=== PATIENT | male | born 1955 | race Caucasian/White ===

== ENCOUNTER → 2023-03-30 13:18 | Outpatient (BNVA) | payer OTHER, SELFPAY | PROVIDERS: PCP Physician Assistant; Visit Provider Anesthesiology | DX: G89.4 Chronic pain syndrome (principal); G58.9 Mononeuropathy, unspecified; M51.36 Other intervertebral disc degeneration, lumbar region; M47.816 Spondylosis without myelopathy or radiculopathy, lumbar region | CPT/HCPCS: 99202 ==

== ENCOUNTER 2023-08-02 05:59 | Outpatient (REF) | payer OTHER, SELFPAY ==
--- NOTE | ~2023-08-02 | FL_ITS ---
EXAMINATION: XR FLUOROSCOPY WITH IMAGES CLINICAL INFORMATION: Mononeuropathy COMPARISON: None available. TECHNIQUE: Fluoroscopy Supervised By: Dr. Inocencio Simon. Fluoroscopy Time: 0.2 minutes. Cumulative Dose: 3.02 mGy. DAP: 0.0525 Gycm2. Images: 1. FINDINGS: There is a small amount of contrast overlying the iliac crest. Per note, the exam was not completed due to patient movement. FL/FL guidance in treatment room IMPRESSION: Fluoroscopic guidance for pain management.
== END 2023-08-02 06:00 | disposition home or self-care (01) ==
LOC: CF 05:59
PROVIDERS: Visit Provider Anesthesiology
DX: M51.36 Other intervertebral disc degeneration, lumbar region (principal); G89.4 Chronic pain syndrome; M47.816 Spondylosis without myelopathy or radiculopathy, lumbar region
CPT/HCPCS: 64450; 77002; J2795; Q9967

== ENCOUNTER 2023-08-02 07:12 | Outpatient (AMB) | payer OTHER, SELFPAY ==
[2023-08-02 07:17] VITALS: BP 130/82; PULSE 57; RESP 18; O2SAT 97; BMI 32.4
--- NOTE | 2023-08-02 07:17 | MHC.OFFVIS ---
Intake Vital Signs 08/02/23 07:17 Height 6 ft Weight 239 lb BMI 32.4 BP 130/82 Blood Pressure Location Lt brachial Position Sitting Respiration 18 Pulse 57 Pulse Source Pulse Oximeter Pulse Oximetry (%) 97 Oxygen Delivery Method Room Air Comment Pre-Op Intake Visit Reasons: L DX CLUNEAL NB/LOCAL Allergies No Known Allergies Allergy (Verified 08/02/23 07:19) Physical Exam Vital Signs: Last Vital Signs Pulse 57 08/02/23 07:17 Resp 18 08/02/23 07:17 BP 130/82 08/02/23 07:17 Pulse Ox 97 08/02/23 07:17 Oxygen Delivery Method Room Air 08/02/23 07:17 BMI result Body Mass Index 32.4 Assessment & Plan Assessment & Plan (1) Mononeuropathy, unspecified: Code(s): G58.9 - Mononeuropathy, unspecified Plan: Diagnostic left cluneal nerve block attempt. Informed consent was explained thoroughly to the patient.? All questions about benefits and risks for the procedure were answered. Patient came to the operating room and was positioned prone on the operating table with the pillow under the pelvis.? ? The lower back and buttocks of the patient were prepped with ChloraPrep prepped and draped with sterile utility towels.? Sterilely draped C-arm was brought over the operating field and sq picture of patient's pelvis was demonstrated on the screen.? Left iliac crest was demonstrated on the screen. In the projection of left iliac crest starting from the top of the iliac crest and finishing at the projection of the most lateral portion of sacral alae to the skin injection of the local anesthetic was performed in linear fashion. After that several attempts were made to drive 22 gauge 3-1/2 inch needle to the bony portion of the left iliac crest. I managed to accomplish only 1 needle advancement. Patient was very restless on the operating table continue to move which prevented me to focus C-arm properly on the targets and constantly change the direction of the x-ray beam. I asked the patient if he wants to reschedule this procedure under sedation so he could stay more stable on the operating field. The patient agreed. Procedure was terminated. The patient will be rescheduled for left cluneal nerve block under propofol sedation. (2) Disc degeneration, lumbar: Code(s): M51.36 - Other intervertebral disc degeneration, lumbar region (3) Chronic pain syndrome: Code(s): G89.4 - Chronic pain syndrome (4) Spondylosis of lumbar joint: Code(s): M47.816 - Spondylosis without myelopathy or radiculopathy, lumbar region Plan With no tenderness on palpation in the projection of the lumbar spine and severe tenderness on palpation in projection of the left iliac crest my 1st thought about this patient's pain is cluneal nerve neuropathy. I offered him and he agreed to go for left-sided cluneal nerve injection. I will do this injection as a diagnostic injection to figure out the source of his pain. If this will be positive test I will offer him radiofrequency ablation versus stimulation of the cluneal nerves. I also would need to evaluate MRI which was recently done and demonstrated some ?bulging disc ?. It is not clear whether not the bulging disc her part of his syndrome however he reports left lower extremity giving in under him and that might be related to some nerve root compressions. Spondylosis of lumbar spine also can be suspected and treated with diagnostic medial branch block on the left side. I will see this patient after cluneal nerve injection. Hopefully by then we will obtain the MRI. Orders: Orders FL guidance in treatment room 08/02/23 G58.9 - Mononeuropathy, unspecified Coding Level of Care Code Procedure Only Diagnoses Mononeuropathy, unspecified G58.9 Disc degeneration, lumbar M51.36 Chronic pain syndrome G89.4 Spondylosis of lumbar joint M47.816
== END 2023-08-02 08:03 | disposition left against medical advice (07) ==
LOC: HO.PMCPRC 07:12
PROVIDERS: PCP Physician Assistant; Visit Provider Anesthesiology
DX: G89.4 Chronic pain syndrome (principal); M47.816 Spondylosis without myelopathy or radiculopathy, lumbar region
CPT/HCPCS: 64450; 77002

== ENCOUNTER 2023-08-26 08:05 | Day surgery (SDC) | payer OTHER, SELFPAY ==
[2023-08-24 13:41] VITALS: BMI 32.4
--- NOTE | ~2023-08-26 | FL_ITS ---
EXAMINATION: XR FLUOROSCOPY WITH IMAGES CLINICAL INFORMATION: Cluneal nerve block, left. COMPARISON: None available. TECHNIQUE: Fluoroscopy Supervised By: Dr. Inocencio Simon. Fluoroscopy Time: 0.4 minutes. Cumulative Dose: 21.6 mGy. DAP: 5.90 Gycm2. Images: 4. FINDINGS: Images demonstrate needle placement and contrast injection adjacent to the left iliac crest. Orthopedic hardware in the lower lumbar spine and left pelvis. FL/FL guidance in OR IMPRESSION: Fluoroscopy guidance for pain management procedure
[2023-08-26 08:56] VITALS: BMI 32.5
--- NOTE | 2023-08-26 09:03 | P.CONAN_ITS ---
HPI - Anesthesia Eval Consult details Narrative: for diagnostic cluneal block [facility] Active Problems Active Problems: All Active Problems (Updated 08/24/23 @ 13:35 by Mayra Torres RN) Spondylosis of lumbar joint (Acute) Chronic pain syndrome (Acute) Disc degeneration, lumbar (Acute) Mononeuropathy, unspecified (Acute) Past Medical History Medical History Osteoarthritis CHF (congestive heart failure) Sleep apnea Elevated cholesterol HTN (hypertension) Nonischemic cardiomyopathy CAD (coronary artery disease) Atrial fibrillation Aortic stenosis Aortic insufficiency History of cardioversion Chronic pain syndrome Disc degeneration, lumbar Family History Family history of problems with anesthesia: No Surgical History Surgical History H/O foot surgery Previous back surgery Hx of knee surgery Hx of arthroscopy of right knee History of total hip replacement Hx of aortic valve replacement History of Problems with Anesthesia: No Social History Social History Patient Tobacco Use Status: Never used Tobacco Use of substances other than those prescribed or required for medical reasons: No Are you DNR?: No Advance Directives: No Advance Directives Information Provided: Yes Meds Allergies Allergy/AdvReac Type Severity Reaction Status Date / Time No Known Allergies Allergy Verified 08/26/23 08:44 Home Medications Medication Instructions Recorded Confirmed Last Taken Type amlodipine 10 mg tablet 10 mg PO DAILY 03/30/23 08/26/23 08/26/23 History apixaban 5 mg tablet (Eliquis) 5 mg PO BID 03/30/23 08/26/23 08/23/23 History aspirin 81 mg tablet,delayed 81 mg PO DAILY 03/30/23 08/26/23 08/20/23 History release atorvastatin 80 mg tablet 80 mg PO QPM 03/30/23 08/26/23 08/26/23 History buprenorphine 8 mg-naloxone 2 mg 1 tab sublingual TID 03/30/23 08/26/23 08/24/23 History sublingual tablet clobetasol 0.05 % topical cream 1 appl topical BID 03/30/23 08/26/23 Unknown History metoprolol succinate 25 mg 25 mg PO DAILY 03/30/23 08/26/23 08/26/23 History tablet,extended release 24 hr sacubitril 24 mg-valsartan 26 mg 1 tab PO BID 08/24/23 08/26/23 08/26/23 History tablet (Entresto) Exam Exam Date and Time: August 26, 2023902 Height,Weight and Vital Signs: Height 6 ft Weight 108.862 kg Airway Mallampati Class: III TM Dist: >3cm Neck ROM: Full Heart: rrr Lungs: cta Assessment and Plan Assessment Anesthesia Assessment: Anesthesia Plan Discussed Final Anesthetic Review Family History of Problems with Anesthesia: No History of Problems with Anesthesia: No NPO: Yes ASA Class: III Final Preanesthetic Review: No Changes in Pt Med Stat, Meds/Allgs Chart Reviewed, Consent Obtained/Reviewed and Anes Risks/Benef Reviewed Patient Risk: Low Procedure Risk: Low Anesthetic Plan Anesthetic Plan: MAC: Disposition: Standard PACU
--- NOTE | 2023-08-26 09:06 | MHC.SHP ---
Pre-Procedural Eval Section A Date of Service: 08/26/23 The patient is an INPATIENT: No Changes since office visit: Yes Patient answered all questions The History & Physical has been completed within 30 days and I have reviewed it.: No Section B Chief Complaint: Mononeuropathy, unspecified Details of Present Illness: as above Relevant Family History (Specify if Yes): No Relevant Social History: None Present Medications: None Medical History: No relevant PMH History of Previous Operations: No relevant previous surgery Allergies: Allergies Allergy/AdvReac Type Severity Reaction Status Date / Time No Known Allergies Allergy Verified 08/26/23 08:44 Review of Systems Sugical H&P ROS: Negative: Constitution, Cardiovascular, Respiratory, Neurological, Psychiatric, Hem-Onc, Allergic/Immunologic, Gastrointestinal, Genitourinary, Musculoskeletal, Integumentary, Endocrine and Eyes/Ears/Nose/Throat Exam Surgical H&P Exam: Normal: HEENT, Normal: Heart, Normal: Lungs, Normal: Extremities, Normal: Abdomen, Normal: Skin and Normal: Neurological Plan Diagnosis/Plan: Unchanged I have reviewed the history and physical and performed a pertinent physical examination on my patient. No changes have occurred unless specified. Time Spent With Patient Time: Total time managing care of this patient today __5__ minutes.
[2023-08-26 09:09] VITALS: BP 150/74; PULSE 57; RESP 16; TEMP 36.1; O2SAT 96
[2023-08-26] MEDS: Lactated Ringers 1,000 ML 80 ML IVCONT (09:19)
[2023-08-26 10:22] VITALS: BP 109/43; PULSE 49; RESP 18; TEMP 36.6; O2SAT 96
--- NOTE | 2023-08-26 10:26 | PM.OP ---
Brief Operative Note Date of Service: 08/26/23 Pre-op diagnosis: cluneal nerve entrapment left Post-op diagnosis: same Procedure: cluneal nerves left block diagnostic. Surgeon: Inocencio Simon MD Anesthesia: MAC Was an It Compliance Analyst used for this Procedure?: No Estimated blood loss (mL): 1 Condition: stable Disposition: PACU
--- NOTE | 2023-08-26 10:27 | W.PM.OPN ---
Operative Note Operative Note Date of Service: 08/26/23 Narrative: Diagnostic left cluneal nerve block Informed consent was explained to the patient. All questions were explained and? answered.? The patient was taken inside the operating room where the patient was positioned prone on the operating table.. Time-out was performed delineating correct site, side, the nature of the procedure, patient's allergy, preoperative antibiotic if needed.? All operating room staff was participating in OR time-out procedure. Is same monitors were applied patient was deeply sedated The left low back was prepped with ChloraPrep and draped with sterile towels.? C-arm was brought over the operating field and square picture of left iliac crest? was delineated on the screen.? Point of interest were delineated as the points from the top of the left iliac crest to the lateral land of sacral alae 1 cm apart.The projection of the point of interest to the skin were injected with the small amount of local anesthetic Mixture lidocaine 2% and ropivacaine 0.5% 8 mL. After that 22 gauge QP spinal needles were driven to the point of interest in tunnel vision fashion. After needles gently contacted the bone the needles were injected with small amount of Contrast delineating no intravascular contrast uptake. After that 0.5-1 cc of Ropivacaine 0.5% was injected into the each needle position. After that needles were removed and Band-Aids were applied. Patient tolerated procedure well. He was taken to recovery room where he recovered uneventfully.
[2023-08-26 10:37] VITALS: BP 108/61; PULSE 52; RESP 16; TEMP 36.6; O2SAT 95
== END 2023-08-26 11:40 | disposition home or self-care (01) ==
PROVIDERS: PCP Physician Assistant; Visit Provider Anesthesiology
PROC: (CPT 64450; principal; 2023-08-26 10:00)
DX: G58.9 Mononeuropathy, unspecified (principal); G89.4 Chronic pain syndrome; M54.50 Low back pain, unspecified; M51.36 Other intervertebral disc degeneration, lumbar region; M47.816 Spondylosis without myelopathy or radiculopathy, lumbar region
CPT/HCPCS: 64450; J2250; J2795; Q9967

== ENCOUNTER → 2023-08-26 08:05 | Outpatient (BNV) | payer OTHER, SELFPAY | PROVIDERS: PCP Physician Assistant; Visit Provider Anesthesiology | DX: G58.9 Mononeuropathy, unspecified (principal) | CPT/HCPCS: 64450; 77002 ==

== ENCOUNTER 2023-08-29 12:58 | Outpatient (AMB) | payer OTHER, SELFPAY ==
--- NOTE | 2023-08-29 13:00 | MHC.OFFVIS ---
Intake Vital Signs 08/29/23 13:10 Height 6 ft Weight 246 lb 2 oz BMI 33.4 BP 130/80 Blood Pressure Location Lt brachial Position Sitting Respiration 16 Pulse 61 Pulse Source Pulse Oximeter Pulse Oximetry (%) 97 Oxygen Delivery Method Room Air Intake Visit Reasons: s/p Lt Dx Cluneal Nerve Block 08/26/23/Lvm Allergies No Known Allergies Allergy (Verified 08/29/23 13:11) HPI HPI Comments History of Present Illness Details Pedrito is back in my office after the diagnostic left cluneal nerve block injection which was done on 08/26/2023. Patient reports that his procedure was performed 1039 morning. By 11 o'clock he felt complete pain relieve in the back. He reported 100% pain improvement total pain elimination until the end of that day. He reported that he had on that night best night's sleep he had any years. He reported still improved mobility next day after the procedure although his pain started to come back. I think I may consider at this time diagnostic left cluneal nerve block positive as the cluneal nerve entrapment diagnosis. I offered him to procedures 1 is radiofrequency ablation of the cluneal nerves and the other peripheral nerve stimulation. He decided to think about it, meanwhile I would need to schedule him for psychological evaluation in case he decides to go for peripheral nerve stimulation. I am considering freedom/curinix PNS for this patient. Prior: very pleasant 67 years old gentleman who is in my office complaining on pain on the left side of the lower back exacerbated when he is going up and down the stairs. He reported that this pain started on 09/26/2022 when he was working at his job side. He was at that time at his usual health. He bent himself forward and tried to twist his back in this position and experience severe pain in the back without radiation into the lower extremity. He reports that from time to time he is left lower leg is giving in under him and he loses his balance and he has to tire man something to prevent a fall. He went to emergency room and had x-ray. They also send him to physical therapy for his back. He reports that physical therapy only aggravated his pain. He tries to take NSAID medications but a receives no relief of from NSAID medications. He recently had an MRI however report of the MRI or image of that MRI is not available today. When he is not moving he reports his pain 01/07. With movement he reports his pain 9 to 8/10. He never tried topical medications for his pain. He never tried heat application for his pain. His past medical history significant for hypertension history of mitral wall replacement with tissue valve. 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 He needs to stop this medication if he goes for injection for 3 full days. His past surgical history significant for hip replacement on 2010 2011 and I aortic valve replacement in 2012. He denies smoking cigarettes does not drink alcohol does not use recreational drugs. He is currently unemployed on disability and this is workman's comp case [facility] Medical History Osteoarthritis CHF (congestive heart failure) Sleep apnea Elevated cholesterol HTN (hypertension) Nonischemic cardiomyopathy CAD (coronary artery disease) Atrial fibrillation Aortic stenosis Aortic insufficiency History of cardioversion Chronic pain syndrome Disc degeneration, lumbar Surgical History H/O foot surgery Previous back surgery Hx of knee surgery Hx of arthroscopy of right knee History of total hip replacement Hx of aortic valve replacement Social History Patient Tobacco Use Status: Never used Tobacco Review of Systems Const All systems reviewed & are unremarkable except as noted in HPI and below ENT Reports Normal hearing present Neuro Reports Normal hearing present, Denies Abnormal speech present and Denies Sensory deficit (Neuro) Physical Exam Vital Signs: Last Vital Signs Pulse 61 08/29/23 13:10 Resp 16 08/29/23 13:10 BP 130/80 08/29/23 13:10 Pulse Ox 97 08/29/23 13:10 Oxygen Delivery Method Room Air 08/29/23 13:10 BMI result Body Mass Index 33.4 Const General: cooperative, healthy appearing, comfortable, no acute distress and well developed Orientation/consciousness: patient oriented x3 Eyes General: appearance normal, both eyes and all related structures Pupils: Equal, round and reactive pupils present EOM: EOMs intact bilaterally Neck Neck: Yes full ROM Chest Chest palpation & inspection: normal inspection of the chest Resp Effort & Inspection: normal respiratory effort, able to speak in complete sentences, normal respiratory pattern, no audible wheezes and no cough Cardio Jugular venous distension: no JVD GI Inspection: Yes normal to inspection Back/Spine/Pelvis Other: Patient demonstrates normal strength bilateral lower extremities by standing on bilateral tiptoes and bilateral heels. He is able to lift his 1st dose in separation of the rest of his toes demonstrating normal strength of bilateral lower extremity. Valsalva maneuver is negative for pain increase. Joel test is negative for pain increase. Lassegue test is negative for pain increase. SLR is negative for pain increase. Flexing forward and flexing backwards affect his pain minimally however flexing forward aggravates his pain little bit more. No tenderness on palpation in the projection of sacroiliac joints. Severe tenderness of palpation in projection of the left cluneal nerve/iliac crest. Neuro General: patient oriented x3 and gait normal Cranial nerves: Yes CN's II-XII intact bilaterally, Yes Equal, round and reactive pupils present, Yes Normal hearing present and Yes Ability to bilaterally elevate shoulders present Speech: No Abnormal speech present Gait exam (Neuro): Normal gait present Motor exam (neuro): 5/5 motor strength present throughout Sensory Exam: No Sensory deficit (Neuro) Extrem General: No pedal edema Psych Speech and movement: Normal speech and movement present Affect: normal affect Attitude: cooperative Thought process: Normal thought process present Thought content: Normal thought content present Insight: Good insight present (Psych) Judgement: Good judgement present (Psych) Assessment & Plan Assessment & Plan (1) Mononeuropathy, unspecified: Code(s): G58.9 - Mononeuropathy, unspecified (2) Disc degeneration, lumbar: Code(s): M51.36 - Other intervertebral disc degeneration, lumbar region (3) Chronic pain syndrome: Code(s): G89.4 - Chronic pain syndrome (4) Spondylosis of lumbar joint: Code(s): M47.816 - Spondylosis without myelopathy or radiculopathy, lumbar region Plan Very good results of the diagnostic left cluneal nerve block. He reported 100% pain relief until the next of the day. He reports better mobility and better social interactions after the injection. It actually lasted more than 24 hours on relatively small does of the ropivacaine which should be working only for 5-6 hours. I offered him RFA versus PNS. I will send him for psychological evaluation while he is thinking. If he decides that RFA is better of mode of treatment for him he may cancel psychological evaluation. Risks and benefits of both procedures were carefully explained to the patient. Coding Level of Care Code Est Pt Level 4 (20431) Diagnoses Mononeuropathy, unspecified G58.9 Disc degeneration, lumbar M51.36 Chronic pain syndrome G89.4 Spondylosis of lumbar joint M47.816
[2023-08-29 13:10] VITALS: BP 130/80; PULSE 61; RESP 16; O2SAT 97; BMI 33.4
== END 2023-08-29 13:29 | disposition home or self-care (01) ==
PROVIDERS: PCP Physician Assistant; Visit Provider Anesthesiology
DX: G58.9 Mononeuropathy, unspecified (principal); M51.36 Other intervertebral disc degeneration, lumbar region; G89.4 Chronic pain syndrome; M47.816 Spondylosis without myelopathy or radiculopathy, lumbar region
CPT/HCPCS: 99214

== ENCOUNTER → 2023-08-29 12:58 | Outpatient (BNVA) | payer OTHER, SELFPAY | PROVIDERS: PCP Physician Assistant; Visit Provider Anesthesiology | DX: G58.9 Mononeuropathy, unspecified (principal); M51.36 Other intervertebral disc degeneration, lumbar region; G89.4 Chronic pain syndrome; M47.816 Spondylosis without myelopathy or radiculopathy, lumbar region | CPT/HCPCS: 99212 ==

== ENCOUNTER 2023-11-03 11:54 | Day surgery (SDC) | payer OTHER, SELFPAY ==
--- NOTE | 2023-10-06 13:05 | HO.ANESPROP2 ---
HPI - Anesthesia Eval Consult details Narrative: 68yo M for Left Cluneal Nerve RFA s/p diagnostic 07/2023 with [facility] for afib PMFSH Active Problems Active Problems: All Active Problems (Updated 08/24/23 @ 13:35 by Mayra Torres RN) Spondylosis of lumbar joint (Acute) Chronic pain syndrome (Acute) Disc degeneration, lumbar (Acute) Mononeuropathy, unspecified (Acute) Past Medical History Medical History Osteoarthritis CHF (congestive heart failure) Sleep apnea Elevated cholesterol HTN (hypertension) Nonischemic cardiomyopathy CAD (coronary artery disease) Atrial fibrillation Aortic stenosis Aortic insufficiency History of cardioversion Chronic pain syndrome Disc degeneration, lumbar Family History Family history of problems with anesthesia: No Surgical History Surgical History H/O foot surgery Previous back surgery Hx of knee surgery Hx of arthroscopy of right knee History of total hip replacement Hx of aortic valve replacement History of Problems with Anesthesia: No Social History Social History Patient Tobacco Use Status: Never used Tobacco Meds Allergies Allergy/AdvReac Type Severity Reaction Status Date / Time No Known Allergies Allergy Verified 08/29/23 13:11 Home Medications Medication Instructions Recorded Confirmed Last Taken Type amlodipine 10 mg tablet 10 mg PO DAILY 03/30/23 08/26/23 08/26/23 History apixaban 5 mg tablet (Eliquis) 5 mg PO BID 03/30/23 08/26/23 08/23/23 History aspirin 81 mg tablet,delayed 81 mg PO DAILY 03/30/23 08/26/23 08/20/23 History release atorvastatin 80 mg tablet 80 mg PO QPM 03/30/23 08/26/23 08/26/23 History buprenorphine 8 mg-naloxone 2 mg 1 tab sublingual TID 03/30/23 08/26/23 08/24/23 History sublingual tablet clobetasol 0.05 % topical cream 1 appl topical BID 03/30/23 08/26/23 Unknown History metoprolol succinate 25 mg 25 mg PO DAILY 03/30/23 08/26/23 08/26/23 History tablet,extended release 24 hr sacubitril 24 mg-valsartan 26 mg 1 tab PO BID 08/24/23 08/26/23 08/26/23 History tablet (Entresto) Exam Exam Date and Time: October 06, 2023 1305 Assessment and Plan Final Anesthetic Review Family History of Problems with Anesthesia: No History of Problems with Anesthesia: No
[2023-10-31 16:01] VITALS: BMI 33.4
[2023-10-31 16:58] VITALS: BMI 31.9
--- NOTE | 2023-11-02 10:11 | P.CONAN_ITS ---
HPI - Anesthesia Eval Consult details Narrative: 68yo M for Left Cluneal Nerve RFA s/p periph nerve catheter 07/2023 with TIVA Follows [facility] cardiology. Last office visit 06/2023 with discussion about holding anticoag and risks associated for this procedure Eliquis for afib, s/p cardioversion 03/2023 AVR 2012 CAD with severe mid LAD stenosis negative by IFR, medically managed Nonischemic CMP (EF 35-45 08/2022) Suboxone daily PMFSH Active Problems Active Problems: All Active Problems (Updated 08/24/23 @ 13:35 by Mayra Torres RN) Spondylosis of lumbar joint (Acute) Chronic pain syndrome (Acute) Disc degeneration, lumbar (Acute) Mononeuropathy, unspecified (Acute) Past Medical History Medical History Osteoarthritis CHF (congestive heart failure) Sleep apnea Elevated cholesterol HTN (hypertension) Nonischemic cardiomyopathy CAD (coronary artery disease) Atrial fibrillation Aortic stenosis Aortic insufficiency History of cardioversion Chronic pain syndrome Disc degeneration, lumbar Family History Family history of problems with anesthesia: No Surgical History Surgical History H/O foot surgery Previous back surgery Hx of knee surgery Hx of arthroscopy of right knee History of total hip replacement Hx of aortic valve replacement History of Problems with Anesthesia: No Social History Social History (Updated 10/31/23 @ 16:58 by Erica Sesay RN) Household Members: Spouse Housing: House Are you a primary animal care service worker to a significant other at home: No Do you presently have visiting nurse or other home services: No Patient Tobacco Use Status: Never used Tobacco Use of substances other than those prescribed or required for medical reasons: No Have you been hit, kicked, punched, or otherwise hurt by someone within the past year? If so, by whom?: No Are you DNR?: No Advance Directives: No Advance Directives Information Provided: Yes Advance Directives on File: No Nutrition Risks: No Nutritional Risk Meds Allergies Allergy/AdvReac Type Severity Reaction Status Date / Time No Known Allergies Allergy Verified 10/31/23 16:57 Home Medications Medication Instructions Recorded Confirmed Last Taken Type amlodipine 10 mg tablet 10 mg PO DAILY 03/30/23 10/31/23 08/26/23 History apixaban 5 mg tablet (Eliquis) 5 mg PO BID 03/30/23 10/31/23 08/23/23 History aspirin 81 mg tablet,delayed 81 mg PO DAILY 03/30/23 10/31/23 08/20/23 History release atorvastatin 80 mg tablet 80 mg PO QPM 03/30/23 10/31/23 08/26/23 History buprenorphine 8 mg-naloxone 2 mg 1 tab sublingual TID 03/30/23 10/31/23 08/24/23 History sublingual tablet clobetasol 0.05 % topical cream 1 appl topical BID 03/30/23 10/31/23 Unknown History metoprolol succinate 25 mg 25 mg PO DAILY 03/30/23 10/31/23 08/26/23 History tablet,extended release 24 hr sacubitril 24 mg-valsartan 26 mg 1 tab PO BID 08/24/23 10/31/23 08/26/23 History tablet (Entresto) Exam Height,Weight and Vital Signs: Height 6 ft Weight 106.594 kg Narrative Narrative: EKG 06/2023 SR with occ PVCs Incomplete LBBB ST and T wave abn, consider inferolateral ischemia ECHO 2021 1. LV mildly dilated. Mild concentric LVH 2. Moderately reduced LV systolic function. EF 35-45% 3. Mild to moderate global hypokenisis of LV. Abnormal septal motion c/w prior cardiac surgery 4. LA moderate to severely dilated. 5. Moderate dilation of ascending aorta (max diameter 4.6) 6. RV normal in size. RV systolic function is mildly reduced. Assessment and Plan Assessment Anesthesia Assessment: Chart Reviewed Final Anesthetic Review Family History of Problems with Anesthesia: No History of Problems with Anesthesia: No
--- NOTE | ~2023-11-03 | FL_ITS ---
EXAMINATION: XR FLUOROSCOPY WITH IMAGES CLINICAL INFORMATION: Left cluneal nerve RFA. COMPARISON: None available. TECHNIQUE: Fluoroscopy Supervised By: Dr. Inocencio Simon. Fluoroscopy Time: 0.7 minutes. Cumulative Dose: 15.6 mGy. DAP: 3.98 Gycm2. Images: 6. FINDINGS: Images demonstrate probe/lead projecting over the left iliac crest. There are postsurgical changes to the lower lumbar spine and left pelvis. FL/FL guidance in OR IMPRESSION: Fluoroscopy guidance for pain management procedure
[2023-11-03 12:38] VITALS: BP 142/72; PULSE 55; RESP 16; TEMP 36.4; O2SAT 97
[2023-11-03] MEDS: Lactated Ringers 1,000 ML 50 ML IVCONT (12:52)
--- NOTE | 2023-11-03 14:41 | W.PM.OPN ---
Operative Note Operative Note Date of Service: 11/03/23 Narrative: RFA of the left cluneal nerves. After obtaining informed consent the patient was brought to operating room where she was positioned prone on the operating table. ASA monitors were applied and patient was sedated. time-out was performed delineating name and date of of the patient site and side of the procedure need for antibiotic prophylaxis risk of fire need for DVT prophylaxis. The entire back of the patient was prepped with ChloraPrep and draped with sterile utility towels. Sterilely draped C-arm was brought over the operating field and sq picture of the left iliac crest was demonstrated on the screen. The points of interest were delineated as the most superior point of iliac crest, the connection of the sacral alae with the lowest point of iliac crest, as well as all the points in between alongside the medial iliac crest 1 cm apart. The projections of the points of interest to the skin was injected with small amount of lidocaine 1%. After that 18 gauge RFA needles cannulas were driven to the point of interest in tunnel vision fashion. After needle gently contacted the bone the stylets were removed and nitinoll electrodes were inserted into the needles. The motor function was tested and no motor response was demonstrated. After that the nitinoll electrodes were removed, the needles were injected with small amount of mixture of lidocaine 2% and ropivacaine 0.5% 1-1 with trace amount of additional triamcinolone in the admixture. The electrodes after that were reinserted and energy was applied for 90 seconds at 90 degree centigrade temperature. needles were rotated 180 degrees and energy application was repeated at the same parameters. After that the needles were removed and procedure was repeated on the next set of points along side the iliac crest. Total of 10 needle insertions were made. Upon completion of the procedure needles were removed and sterile Band-Aid was applied. Patient tolerated procedure well.
--- NOTE | 2023-11-03 14:52 | PC.NURSE ---
moved patient to pacu bed 15. report given to tenisha woods.
--- NOTE | 2023-11-03 14:59 | P.CONAN_ITS ---
[facility] Active Problems Active Problems: All Active Problems (Updated 08/24/23 @ 13:35 by Mayra Torres RN) Spondylosis of lumbar joint (Acute) Chronic pain syndrome (Acute) Disc degeneration, lumbar (Acute) Mononeuropathy, unspecified (Acute) Past Medical History Medical History Osteoarthritis CHF (congestive heart failure) Sleep apnea Elevated cholesterol HTN (hypertension) Nonischemic cardiomyopathy CAD (coronary artery disease) Atrial fibrillation Aortic stenosis Aortic insufficiency History of cardioversion Chronic pain syndrome Disc degeneration, lumbar Family History Family history of problems with anesthesia: No Surgical History Surgical History H/O foot surgery Previous back surgery Hx of knee surgery Hx of arthroscopy of right knee History of total hip replacement Hx of aortic valve replacement History of Problems with Anesthesia: No Social History Social History Household Members: Spouse Housing: House Are you a primary child day care teacher to a significant other at home: No Do you presently have visiting nurse or other home services: No Patient Tobacco Use Status: Never used Tobacco Meds Allergies Allergy/AdvReac Type Severity Reaction Status Date / Time No Known Allergies Allergy Verified 10/31/23 16:57 Active Medications: Current Medications Lactated Ringer's (Lr) 1,000 mls @ 50 mls/hr IVCONT .Q20H TYLER Last Admin: 11/03/23 12:52 Dose: 50 mls/hr Home Medications Medication Instructions Recorded Confirmed Last Taken Type amlodipine 10 mg tablet 10 mg PO DAILY 03/30/23 10/31/23 11/03/23 History apixaban 5 mg tablet (Eliquis) 5 mg PO BID 03/30/23 10/31/23 10/31/23 History aspirin 81 mg tablet,delayed 81 mg PO DAILY 03/30/23 10/31/23 10/27/23 History release atorvastatin 80 mg tablet 80 mg PO QPM 03/30/23 10/31/23 08/26/23 History buprenorphine 8 mg-naloxone 2 mg 1 tab sublingual TID 03/30/23 10/31/23 08/24/23 History sublingual tablet clobetasol 0.05 % topical cream 1 appl topical BID 03/30/23 10/31/23 Unknown History metoprolol succinate 25 mg 25 mg PO DAILY 03/30/23 10/31/23 11/03/23 History tablet,extended release 24 hr sacubitril 24 mg-valsartan 26 mg 1 tab PO BID 08/24/23 10/31/23 08/26/23 History tablet (Entresto) Exam Height,Weight and Vital Signs: Height 6 ft Weight 106.594 kg Last Vital Signs Temp 97.5 F 11/03/23 12:38 Pulse 55 11/03/23 12:38 Resp 16 11/03/23 12:38 BP 142/72 H 11/03/23 12:38 Pulse Ox 97 11/03/23 12:38 O2 Del Method Room Air 11/03/23 12:38 Airway Mallampati Class: III TM Dist: >3cm Neck ROM: Full Heart: RRR Lungs: CTA Assessment and Plan Final Anesthetic Review Family History of Problems with Anesthesia: No History of Problems with Anesthesia: No NPO: Yes ASA Class: III Final Preanesthetic Review: Meds/Allgs Chart Reviewed, Consent Obtained/Reviewed and Anes Risks/Benef Reviewed Patient Risk: Low Procedure Risk: Low Anesthetic Plan Anesthetic Plan: MAC: Disposition: Standard PACU
--- NOTE | 2023-11-03 15:03 | MHC.SHP ---
Pre-Procedural Eval Section A Date of Service: 11/03/23 Section B Chief Complaint: Mononeuropathy, unspecified Details of Present Illness: as above Relevant Family History (Specify if Yes): No Relevant Social History: None Present Medications: None Medical History: No relevant PMH History of Previous Operations: No relevant previous surgery Allergies: Allergies Allergy/AdvReac Type Severity Reaction Status Date / Time No Known Allergies Allergy Verified 10/31/23 16:57 Review of Systems Sugical H&P ROS: Negative: Constitution, Cardiovascular, Respiratory, Neurological, Psychiatric, Hem-Onc, Allergic/Immunologic, Gastrointestinal, Genitourinary, Musculoskeletal, Integumentary, Endocrine and Eyes/Ears/Nose/Throat Exam Surgical H&P Exam: Normal: HEENT, Normal: Heart, Normal: Lungs, Normal: Extremities, Normal: Abdomen, Normal: Skin and Normal: Neurological Plan Diagnosis/Plan: Unchanged I have reviewed the history and physical and performed a pertinent physical examination on my patient. No changes have occurred unless specified. Time Spent With Patient Time: Total time managing care of this patient today __5__ minutes.
--- NOTE | 2023-11-03 16:24 | PM.OP ---
Brief Operative Note Date of Service: 11/03/23 Pre-op diagnosis: Unspecified mono neuropathy, cluneal nerve entrapment. Post-op diagnosis: same Procedure: RFA of the left cluneal nerves Surgeon: Inocencio Simon MD Anesthesia: MAC Was an [employer] Dried Salt used for this Procedure?: No Estimated blood loss (mL): 4 Pathology: none sent Condition: stable Disposition: PACU
[2023-11-03 16:30] VITALS: BP 152/91; PULSE 49; RESP 16; TEMP 36.1; O2SAT 96
[2023-11-03 16:45] VITALS: BP 140/75; PULSE 47; RESP 16; O2SAT 95
[2023-11-03 17:00] VITALS: BP 123/81; PULSE 47; RESP 18; O2SAT 99
[2023-11-03 17:13] VITALS: BP 140/75; PULSE 48; RESP 20; TEMP 36.1; O2SAT 97
--- NOTE | 2023-11-03 17:18 | HO.POSTANES ---
Post Anesthesia Evaluation Post Anesthesia Evaluation Date of Service: 11/03/23 Vital Signs: Vital Signs Temp Pulse Resp BP Pulse Ox O2 Del Method 11/03/23 17:13 97 F 48 L 20 140/75 H 97 Room Air 11/03/23 17:00 47 L 18 123/81 99 Room Air 11/03/23 16:45 47 L 16 140/75 H 95 Room Air 11/03/23 16:30 97 F 49 L 16 152/91 H 96 Room Air 11/03/23 12:38 97.5 F 55 16 142/72 H 97 Room Air Anesthesia: Monitored Mental Status: Awake Pain Control: Satisfactory Nausea/Vomiting: None Hydration: Adequate Anesthesia-Related Issues: No Anes. Related Issues
== END 2023-11-03 17:23 | disposition home or self-care (01) ==
PROVIDERS: PCP Physician Assistant; Visit Provider Anesthesiology
PROC: (CPT 64640; principal; 2023-11-03 13:30)
DX: G58.9 Mononeuropathy, unspecified (principal); M51.36 Other intervertebral disc degeneration, lumbar region; G89.4 Chronic pain syndrome; M54.50 Low back pain, unspecified; M47.816 Spondylosis without myelopathy or radiculopathy, lumbar region; R26.89 Other abnormalities of gait and mobility; M19.90 Unspecified osteoarthritis, unspecified site; I11.0 Hypertensive heart disease with heart failure; I50.9 Heart failure, unspecified; I25.10 Atherosclerotic heart disease of native coronary artery without angina pectoris; I48.91 Unspecified atrial fibrillation; E78.00 Pure hypercholesterolemia, unspecified; G47.33 Obstructive sleep apnea (adult) (pediatric); Z98.890 Other specified postprocedural states
CPT/HCPCS: 64640; J1100; J2250; J2704; J2795; J3010; J3301

== ENCOUNTER → 2023-11-03 11:54 | Outpatient (BNV) | payer OTHER, SELFPAY | PROVIDERS: PCP Physician Assistant; Visit Provider Anesthesiology | DX: G58.9 Mononeuropathy, unspecified (principal) | CPT/HCPCS: 64640; 77002 ==

== ENCOUNTER 2023-12-07 13:37 | Outpatient (AMB) | payer OTHER, SELFPAY ==
--- NOTE | 2023-12-07 13:43 | A.OFFVIS_ITS ---
Intake Vital Signs 12/07/23 13:50 Height 6 ft Weight 250 lb 8 oz BMI 34.0 BP 140/82 H Blood Pressure Location Lt brachial Position Sitting Respiration 16 Pulse 76 Pulse Source Pulse Oximeter Pulse Oximetry (%) 95 Oxygen Delivery Method Room Air Intake Visit Reasons: S/p (L) Cluneal Nerve RFA 11/03/23/confirmed Allergies No Known Allergies Allergy (Verified 12/07/23 13:51) HPI HPI Comments History of Present Illness Details Pedrito is back in my office after the diagnostic left cluneal nerve radiofrequency ablation. He reports appropriate numbness in the projection of the left iliac crest. He reports that pain in the projection of the left iliac crest is much better. However he admits pain deeper in the lumbar spine where previously he had surgery performed with L4-5 laminectomy with pedicle screws and rods for fusion. He reports now on the background of the eliminated pain in projection of the left iliac crest the axial pain he feels much stronger he complains on pain level 8 to 9/10. He refused to go for Curonix stimulating procedure which would be completely reversible if it would not help his pain. Unfortunately now for the next 6 months neither curonix procedure nor any other interventions would be available for this patient. Explain to him that radiofrequency ablation considered to be on ultimate procedure for the next 6 months. I reminded him that block injection on 08/26/2023 resulted in 100% pain limb in a pierre according to his report. Unfortunately now we would have to deal with his axial pain. I explained to him that possibility to treat axial pain would be through neuromodulation. In preparation to neuromodulation he needs to go through psychological evaluation. He expressed intention to call [facility]ena and try to schedule psychological evaluation. Another element in his case which add to total complexities the fact that his insurance is [employer] and he is insisting on payment for his treatment being done by this insurance. I explained to him that he would need to involve his plastics nurse because it is very hard to prove that postlaminectomy syndrome from the procedure done many years ago would need to be treated by [employer] which is covering his care only from September of 2022 when he had accident and the job side. Prior: very pleasant 67 years old gentleman who is in my office complaining on pain on the left side of the lower back exacerbated when he is going up and down the stairs. He reported that this pain started on 09/26/2022 when he was w orking at his job side. He was at that time at his usual health. He bent himself forward and tried to twist his back in this position and experience severe pain in the back without radiation into the lower extremity. 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 He went to emergency room and had x-ray. They also send him to physical therapy for his back. He reports that physical therapy only aggravated his pain. He tries to take NSAID medications but a receives no relief of from NSAID medications. He recently had an MRI however report of the MRI or image of that MRI is not available today. When he is not moving he reports his pain 2/10. With movement he reports his pain 9 to 8/10. He never tried topical medications for his pain. He never tried heat application for his pain. His past medical history significant for hypertension history of mitral wall replacement with tissue valve. 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 He needs to stop this medication if he goes for injection for 3 full days. His past surgical history significant for hip replacement on 2010 2011 and I aortic valve replacement in 2012. He denies smoking cigarettes does not drink alcohol does not use recreational drugs. He is currently unemployed on disability and this is workman's comp case [facility] Medical History Osteoarthritis CHF (congestive heart failure) Sleep apnea Elevated cholesterol HTN (hypertension) Nonischemic cardiomyopathy CAD (coronary artery disease) Atrial fibrillation Aortic stenosis Aortic insufficiency History of cardioversion Chronic pain syndrome Disc degeneration, lumbar Surgical History H/O foot surgery Previous back surgery Hx of knee surgery Hx of arthroscopy of right knee History of total hip replacement Hx of aortic valve replacement Social History Household Members: Spouse Housing: House Are you a primary medical care evaluation specialist to a significant other at home: No Do you presently have visiting nurse or other home services: No Patient Tobacco Use Status: Never used Tobacco Review of Systems Const All systems reviewed & are unremarkable except as noted in HPI and below ENT Reports Normal hearing present Neuro Reports Normal hearing present, Denies Abnormal speech present and Denies Sensory deficit (Neuro) Physical Exam Vital Signs: Last Vital Signs Pulse 76 12/07/23 13:50 Resp 16 12/07/23 13:50 BP 140/82 H 12/07/23 13:50 Pulse Ox 95 12/07/23 13:50 Oxygen Delivery Method Room Air 12/07/23 13:50 BMI result Body Mass Index 34.0 Const General: cooperative, healthy appearing, comfortable, no acute distress and well developed Orientation/consciousness: patient oriented x3 Eyes General: appearance normal, both eyes and all related structures Pupils: Equal, round and reactive pupils present EOM: EOMs intact bilaterally Neck Neck: Yes full ROM Chest Chest palpation & inspection: normal inspection of the chest Resp Effort & Inspection: normal respiratory effort, able to speak in complete sentences, normal respiratory pattern, no audible wheezes and no cough Cardio Jugular venous distension: no JVD GI Inspection: Yes normal to inspection Back/Spine/Pelvis Other: Patient demonstrates normal strength bilateral lower extremities by standing on bilateral tiptoes and bilateral heels. He is able to lift his 1st dose in separation of the rest of his toes demonstrating normal strength of bilateral lower extremity. Valsalva maneuver is negative for pain increase. Joel test is negative for pain increase. Lassegue test is negative for pain increase. SLR is negative for pain increase. Flexing forward and flexing backwards affect his pain minimally however flexing forward aggravates his pain little bit more. No tenderness on palpation in the projection of sacroiliac joints. Severe tenderness of palpation in projection of the left cluneal nerve/iliac crest. Neuro General: patient oriented x3 and gait normal Cranial nerves: Yes CN's II-XII intact bilaterally, Yes Equal, round and reactive pupils present, Yes Normal hearing present and Yes Ability to bilaterally elevate shoulders present Speech: No Abnormal speech present Gait exam (Neuro): Normal gait present Motor exam (neuro): 5/5 motor strength present throughout Sensory Exam: No Sensory deficit (Neuro) Extrem General: No pedal edema Psych Speech and movement: Normal speech and movement present Affect: normal affect Attitude: cooperative Thought process: Normal thought process present Thought content: Normal thought content present Insight: Good insight present (Psych) Judgement: Good judgement present (Psych) Assessment & Plan Assessment & Plan (1) Mononeuropathy, unspecified: Code(s): G58.9 - Mononeuropathy, unspecified (2) Disc degeneration, lumbar: Code(s): M51.36 - Other intervertebral disc degeneration, lumbar region (3) Chronic pain syndrome: Code(s): G89.4 - Chronic pain syndrome (4) Spondylosis of lumbar joint: Code(s): M47.816 - Spondylosis without myelopathy or radiculopathy, lumbar region Plan Despite very good results of the diagnostic left cluneal nerve block when he reported 100% pain relief until the next of the day-the radiofrequency ablation of the cluneal nerves resulted in no improvement. He reports today pain 8 to 9/10. He reports appropriate numbness in the projection of the left iliac crest however reports pain deeper in the center of the lumbar spine. The discussion was made as above. The case is complicated by the fact that he has insurance is [employer]. Possibility exists to treat his condition with neuromodulation however it is unlikely that his [employer] insurance will cover that treatment. His estate planning attorney need to work on that. Meanwhile we can perform psychological evaluation just in case his insurance will approve the treatment. Alternatively he can close the case and rely on his regular healthcare insurance in the treatment of his pain.. He will call Selena to request psychological evaluation scheduling. Patient Instructions: I here by testify that I spent 35 minutes in conversation with this patient as well as planning his care and organizing his note. Coding Level of Care Code Est Pt Level 4 (79187) Diagnoses Mononeuropathy, unspecified G58.9 Disc degeneration, lumbar M51.36 Chronic pain syndrome G89.4 Spondylosis of lumbar joint M47.816
[2023-12-07 13:50] VITALS: BP 140/82; PULSE 76; RESP 16; O2SAT 95; BMI 34.0
== END 2023-12-07 14:19 | disposition home or self-care (01) ==
PROVIDERS: PCP Physician Assistant; Visit Provider Anesthesiology
DX: G58.9 Mononeuropathy, unspecified (principal); M51.36 Other intervertebral disc degeneration, lumbar region; G89.4 Chronic pain syndrome; M47.816 Spondylosis without myelopathy or radiculopathy, lumbar region
CPT/HCPCS: 99214

== ENCOUNTER → 2023-12-07 13:37 | Outpatient (BNVA) | payer OTHER, SELFPAY | PROVIDERS: PCP Physician Assistant; Visit Provider Anesthesiology | DX: G58.9 Mononeuropathy, unspecified (principal); M51.36 Other intervertebral disc degeneration, lumbar region; G89.4 Chronic pain syndrome; M47.816 Spondylosis without myelopathy or radiculopathy, lumbar region | CPT/HCPCS: 99212 ==